=== PATIENT | male | born 1985 | race Caucasian/White ===

== ENCOUNTER 2016-08-19 19:54 | Emergency (ER) | payer SELFPAY ==
[2016-08-19 20:10] VITALS: BP 123/75; PULSE 94; RESP 16; O2SAT 97
--- NOTE | 2016-08-19 21:28 | ED.REPORT ---
HPI-Extremity Problem Upper Date of Service Aug 19, 2016 ED Provider: MD Cielo This is a 31 year old male presenting to the emergency department complaining of R arm pain that began just prior to arrival. Pt is an IV drug user and reports swelling and and pain near that began near injection. Denies fever, chills, nausea, vomiting, abdominal pain, diarrhea, constipation. Nursing Notes Stated Complaint: SWOLLEN/NUMB HAND Chief Complaint: Extremity Trauma Nursing Notes Reviewed: Yes Allergies: Coded Allergies: No Known Allergies (Verified Allergy, Unknown, 05/15/15) No Active Prescriptions or Reported Meds General Time Seen by MD: 21:28 Chief Complaint Arm injury right Hx Obtained From: Patient Arrived By: Walk-in Onset Occurred: Just prior to arrival Symptom Duration: Since onset Severity: Current: Moderate Pertinent Negative: Pt denies other symptoms Recent Healthcare: No recent doctor visit, No recent hospitalization Similar Sx Previous: No Past Medical History Past Surgical History denies Smoking History Never Smoker Social History Alcohol Use: Denies alcohol use Drug Use: IV drugs Occupation lives with girlfriend Ambulatory Status Independent Review of Systems Constitutional: Denies: Chills, Fever Musculoskeletal: Reports: Extremity pain, Extremity swelling, Denies: Back pain Complete sys rev & neg: except as marked. Respiratory: Denies: Shortness of breath GI: Denies: Nausea, Vomiting Physical Exam Initial Vital Signs Vital Signs (First) Date Time Temp Pulse Resp B/P Pulse Ox O2 Delivery O2 Flow Rate FiO2 08/19/16 20:10 36.8 94 16 123/75 97 Room Air Initial VS: Reviewed General/Constitutional: Well-developed, Well-nourished Head / Eyes: Atraumatic, Normocephalic, PERRL ENT: Mucous membranes moist, Conjunctiva normal, No scleral icterus Neck: Supple, Non-tender, Full range of motion Respiratory: Breath sounds normal, Clear to auscultation, No respiratory distress Cardiovascular: Regular rate & rhythm, Heart sounds normal, Intact distal pulses Abdomen / GI: Soft, Non-tender, No guarding, No rebound, No distention Lower Extremities: Vascular intact, Neuro intact, No swelling, No tenderness Skin: Warm, Dry, No cyanosis Neurologic: Alert, Oriented, Nonfocal Psychiatric: Mood/affect normal, Behavior normal, Normal thought content Upper Extremity / MS: Full range of motion, No deformity, Neurologic intact, Vascular intact (no signs of DVT, arterial injury or deep space infection. compartments are soft), No ligamentous injury, Tendon function NL, No compartment syndrome, No circumferential injury, No clubbing/cyanosis, No edema Re-Eval/Medical Decision Med Decision/Clinical Course Looks like mild cellulitis. I suspect that he may have hit his ulnar nerve when he is trying to inject. No evidence of acute arterial injury or signs of arterial expression of the heroin. I will treat with a 5 day course of doxycycline. We splinted his hand and his splint fit well. He will elevate as much as possible. I strongly recommend that he does not abuse drugs. Counseled Regarding: Diagnosis, Lab results, Need for follow-up, When/why to return to ED Discharge & Departure Impression: Primary Impression: IV drug abuse Additional Impression: Cellulitis Site of cellulitis: extremity Site of cellulitis of extremity: upper extremity Laterality: right Qualified Code: L03.113 - Cellulitis of right upper limb Disposition: Home Discharge Condition All VS Reviewed: Yes Condition: Stable Patient Instructions: Cellulitis (ED), Splint Care (ED) Additional Instructions: Take doxycycline as prescribed, twice daily for 5 days. Elevate and activity as tolerated. Tylenol and Motrin as directed for pain control. Seek care for re-evaluation in 2-3 days. Keep your hand splinted until seen in follow up. I encourage you to avoid injectable drugs. Follow-up with your primary care provider. Return to the emergency department if you develop any new or worsening symptoms. [facility] [place] [phone] Referrals: [facility] Scribe Attestation Portions of this note were transcribed by Filomena Rodriguez. I, Dr. Buck personally performed the history, physical exam and medical decision-making; I reviewed and confirmed the accuracy of the information in the transcribed note. Signed by: Filomena Rodriguez. 08/19/2016, 03:00. Carlos Buck DO Aug 19, 2016 21:28 FILOMENA RODRIGUEZ Aug 19, 2016 21:46
[2016-08-19 22:51] VITALS: BP 138/72; PULSE 88; RESP 18; O2SAT 99
== END 2016-08-19 21:00 | disposition home or self-care (01) ==
LOC: SED 19:54
DX: F19.10 Other psychoactive substance abuse, uncomplicated (principal); L03.113 Cellulitis of right upper limb

== ENCOUNTER 2016-09-24 15:25 | Emergency (ER) | payer SELFPAY ==
[~2016-09-24] VITALS: Ht 177.8 cm; Wt 72.7 kg
[2016-09-24 15:50] VITALS: BP 103/66; PULSE 59; RESP 16; O2SAT 100
[2016-09-24] MEDS ORDERED: TdaP Vaccine 0.5 mL Inj IM ONE (16:45)
--- NOTE | 2016-09-24 17:05 | ED.REPORT ---
HPI-General Illness Date of Service Sep 24, 2016 ED Provider: Julio C Brooks PA-C Otherwise healthy 31-year-old male presents with a laceration to the distal tips of his left little finger. Patient states that he cut himself with a clean kitchen knife on chopping vegetables. He denies diabetes, HIV, immunosuppression, bleeding/clotting disorders. He is right-hand dominant. He is unsure of his tetanus status. Nursing Notes Stated Complaint: LEFT HAND/FINGER LACERATION Chief Complaint: Laceration Nursing Notes Reviewed: Yes Allergies: Coded Allergies: No Known Allergies (Verified Allergy, Unknown, 09/24/16) No Active Prescriptions or Reported Meds General Time Seen by MD: 16:32 Chief Complaint Laceration Past Medical History Past Medical History Denies Past Surgical History denies Smoking History Current Every Day Smoker Social History Alcohol Use: Denies alcohol use Drug Use: IV drugs Occupation lives with girlfriend Ambulatory Status Independent Review of Systems Negative unless stated otherwise in history of present illness Physical Exam General: Well appearing, well developed, well nourished, no acute distress. Left hand, fifth finger: Small, less than 1 cm flap laceration to distal tip. No foreign bodies noted. No bone exposed. Overlying tissue is blanched and appears devitalized. Head: Atraumatic, normocephalic. Eyes: No scleral icterus or injection. No discharge. Vision grossly intact. ENT: Voice clear, hearing grossly intact. Respiratory: No respiratory distress, no increased work of breathing. Speaks in complete sentences. Skin: Warm and dry. Neurological: Grossly nonfocal. Psychological: alert and oriented. Speech appropriate, linear and logical. Behavior appropriate. Vital Signs Vital Signs Date Time Temp Pulse Resp B/P Pulse Ox O2 Delivery O2 Flow Rate FiO2 09/24/16 15:50 36.9 59 16 103/66 100 Room Air Initial VS: Reviewed, Vital signs normal Procedures Laceration Management Time: 16:59 Procedure Performed by: Allied health pract Consent / Setup / Site Prep: Informed consent provided, Consent from patient , Hand hygiene observed Location of Wound: Distal tip of the left fifth finger. Wound Length: 1 cm Digital Block: No (patient declined) Wound Preparation: Hibiclens - Chlorhexidine Debridement: Minimal (removed overlying flap of skin consisting of devitalized tissue.) Irrigation: 100 cc Foreign Body Explore / Removal: Explored for foreign body Post-Procedure / Complications: Antibiotic oint applied, Dressing applied, No complications, Condition improved, Tolerated procedure well, Patient stable Re-Eval/Medical Decision Med Decision/Clinical Course Otherwise healthy 31-year-old male presents with a small flap laceration to the distal tip of his left fifth finger. Occurred while cutting vesicles with a clean kitchen knife. Admits no comorbidities. Unsure of tetanus status. Physical examination reveals a small flap laceration, with extremely minimal blood supply that is blanched and appears devitalized. Discussed option of suturing in place to form a biologic dressing or debriding. Patient prefers to debride. He also declined a digital block. Wound was cleansed with wound cleanser and a small amount of skin was removed. Dressed with Xeroform, antibiotic ointment, gauze. Provided tetanus booster and acetaminophen. Patient is healthy, the wound is clean and I see no indication for prophylactic antibiotics. Discharged with emergency return precautions and referral for primary care follow-up. Patient understands and agrees with plan. Discharge & Departure Primary Impression: Laceration Disposition: Home Discharge Condition All VS Reviewed: Yes Condition: Stable Additional Instructions: Evaluation in the emergency department for a laceration. This appears to be a clean wound, with no exposed bone. I see no indication for antibiotics at this time. You are unsure of her tetanus status, so we provided you with a booster shot. We removed a small amount of skin that was unlikely to survive. We have cleaned and dressed the wound with antibiotic ointment and gauze. Please leave this dressing on and dry for the next 24 hours. After that you can remove the dressing, clean with soap and water and then reapply antibiotic ointment and gauze or Band-Aid. Please do not submerge the wound as in washing dishes, swimming or soaking in a tub for about 5 days The pain is best treated with 400 mg of ibuprofen (Advil, Motrin) every 6 hours , or 1000 mg of acetaminophen (Tylenol) every 6 hours. These drugs can be taken at the same time for more severe pain. Be vigilant for signs of infection. While a small amount of redness, tenderness and clear or pink drainage is normal, any increasing pain, redness, swelling or the appearance of pus suggests infection. More severe infection as suggested by symptoms such as fever, chills, feeling ill, racing heart. Please return to emergency Department if you notice signs of infection. I will give you a referral for primary care provider should she have any further concerns. Referrals: [facility] Provider for APC: Estuardo Alejandre Seth PA-C Sep 24, 2016 17:05
== END 2016-09-24 17:11 | disposition home or self-care (01) ==
LOC: SED 15:25
DX: S61.217A Laceration without foreign body of left little finger without damage to nail, initial encounter (principal); W26.0XXA Contact with knife, initial encounter; Y93.G1 Activity, food preparation and clean up; Y92.090 Kitchen in other non-institutional residence as the place of occurrence of the external cause; Y99.8 Other external cause status; F17.200 Nicotine dependence, unspecified, uncomplicated; Z23 Encounter for immunization